=== PATIENT | male | born 1955 | race Caucasian/White ===

== ENCOUNTER 2016-08-27 15:37 | Emergency (ER) | payer BC ==
[2016-08-27] MEDS ORDERED: fentaNYL PF VIAL 100 MCG/2 ML VIAL IV PRN (16:00)
--- NOTE | 2016-08-27 16:03 | EKG ---
[facility] [address] [place] [address] Test Date: 2016-08-27 Test Time: 15:44:26 Pat Name: ANGEL GARCIA Department: Room: Gender: M New Grad Rn: : 1955 Requested By: WENDY GUTIERREZ Order Number: [id number] Reading MD: Measurements Intervals [place] Rate: 79 P: 31 [place]: 140 QRS: -19 QRSD: 88 T: 12 QT: 352 QTc: 405 Interpretive Statements SINUS RHYTHM LEFTWARD AXIS INCOMPLETE RIGHT BUNDLE BRANCH BLOCK QRS(T) CONTOUR ABNORMALITY CANNOT RULE OUT ANTEROSEPTAL MYOCARDIAL DAMAGE RI6.01 Unconfirmed report No previous ECG available for comparison
--- NOTE | 2016-08-27 16:36 | RAD ---
Portable chest, 08/27/2016: History: Chest pain The heart size and pulmonary vascularity are normal. No pulmonary infiltrates are seen. There is no evidence of pleural fluid. Mild spurring is present in the spine. IMPRESSION: No acute cardiopulmonary abnormality is detected.
[2016-08-27] MEDS ORDERED: LIDO:MAALOX:DONNATAL 1:1:1 15 ML SINGLE DOSE SWSW ONE (17:00)
[2016-08-27 17:02] LABS: BASO % 0 % (0-3); EOS % 1 % (0-3); HEMATOCRIT 41.7 % (39.0-53.0); HEMOGLOBIN 14.2 g/dL (13.0-17.5); LYMPH # 1.3 x10^3/uL (1.0-4.8); LYMPH % 16 % (24-48); MEAN CORPUSCULAR HEMOGLOBIN 30 pg (25-35); MEAN CORPUSCULAR HGB CONC 34 g/dL (31-37); MEAN CORPUSCULAR VOLUME 87 fL (79-100); MONO % 8 % (0-9); NEUT % 74 % (31-73); PLATELET COUNT 252 x10^3/uL (140-400); RED BLOOD COUNT 4.81 x10^6/uL (4.30-5.70); RED CELL DISTRIBUTION WIDTH 13.1 % (11.5-14.5); WHITE BLOOD COUNT 7.7 x10^3/uL (4.0-11.0)
[2016-08-27] MEDS: NITROGLYCERIN SUBLINGUAL 0.4 MG BOTTLE OF 25. SL PRN ×3 (17:04→17:22)
[2016-08-27 17:15] LABS: CREATININE 1.1 mg/dL (0.7-1.3); GFR 68.1; POTASSIUM 3.9 mmol/L (3.5-5.1)
[2016-08-27 17:29] LABS: DIRECT BILIRUBIN 0.1 mg/dL (0.0-0.2); TOTAL BILIRUBIN 0.3 mg/dL (0.2-1.0); TOTAL PROTEIN 8.2 g/dL (6.4-8.2)
[2016-08-27 17:34] LABS: BARBITURATES NEG (NEG); BENZODIAZEPINES NEG (NEG); CANNABINOIDS NEG (NEG); COCAINE NEG (NEG); METHADONE NEG (NEG); OPIATES NEG (NEG); PHENCYCLIDINE NEG (NEG)
[2016-08-27 18:27] VITALS: BP 156/92
--- NOTE | 2016-08-27 21:58 | ED.ADGEN ---
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 Patient states he's been 5 weeks of symptoms, which have been constant, described as a aching sensation located in the epigastric region of his abdomen. He denies any radiation, any shortness of breath, any nausea or vomiting, any focal weakness numbness or tingling, no radiation of the pain, any back pain, any arm pain, any similar symptoms previously. Patient states that seen by his primary care provider and evaluated with an ECG and laboratory studies, and then sent to Dr. Fransico HDZ for additional evaluation. He states that during the evaluation Dr. Bateman requested the patient proceed to the emergency department for additional evaluation to rule out any cardiac causes of the patient's pain before any further GI procedures or evaluations performed. Patient has been taking pantoprazole as prescribed his primary care provider for the past several weeks. No other medications, no recent travel or surgery, no injuries, no urinary or respiratory complaints. Review of Systems Review of Systems Constitutional: Denies fever or chills. [] Eyes: Denies change in visual acuity. [] HENT: Denies nasal congestion or sore throat. [] Respiratory: Denies cough or shortness of breath. [] Cardiovascular: Denies chest pain or edema. [] GI: Epigastric abdominal pain, no nausea, vomiting, bloody stools or diarrhea. : Denies dysuria. [] Musculoskeletal: Denies back pain or joint pain. [] Integument: Denies rash. [] Neurologic: Denies headache, focal weakness or sensory changes. [] Endocrine: Denies polyuria or polydipsia. [] Lymphatic: Denies swollen glands. [] Psychiatric: Denies depression or anxiety. [] Current Medications Current Medications Current Medications Medications (Trade) Dose Ordered Sig/Mohan Start Time Stop Time Status Last Admin Dose Admin Fentanyl Citrate (Fentanyl 2ml Vial) 25 mcg PRN Q15MIN PRN 08/27/16 16:00 08/27/16 18:39 DC Multi-Ingredient Mouthwash/Gargle (Gi Cocktail Single Dose) 15 ml 1X ONCE 08/27/16 17:00 08/27/16 17:01 DC 08/27/16 17:27 15 ML Nitroglycerin (Nitrostat) 0.4 mg PRN Q5MIN PRN 08/27/16 16:00 08/27/16 18:39 DC 08/27/16 17:22 0.4 MG Allergies Allergies Allergies Coded Allergies Type Severity Reaction Last Updated Verified No Known Drug Allergies 08/27/16 No Physical Exam Physical Exam Constitutional: Well developed, well nourished, no acute distress, non-toxic appearance. [] HENT: Normocephalic, atraumatic, bilateral external ears normal, oropharynx moist, no oral exudates, nose normal. [] Eyes: PERRLA, EOMI, conjunctiva normal, no discharge. [] Neck: Normal range of motion, no tenderness, supple, no stridor. [] Cardiovascular:Heart rate regular rhythm, no murmur, S1, S2, no rubs or gallops. [] Lungs & Thorax: Bilateral breath sounds clear to auscultation, no wheezing, rhonchi, rales. No chest or crepitus or tenderness. [] Abdomen: Bowel sounds normal, soft, mild tenderness palpation in the epigastric region, this is the location of the patient's discomfort, no other tenderness or abnormalities identified, no rebound, rigidity, no guarding, no masses, no pulsatile masses. [] Skin: Warm, dry, no erythema, no rash. [] Back: No tenderness, no CVA tenderness. [] Extremities: No tenderness, no cyanosis, no clubbing, ROM intact, no edema. Negative Homans sign. [] Neurologic: Alert and oriented X 3, normal motor function, normal sensory function, no focal deficits noted. [] Psychologic: Affect normal, judgement normal, mood normal. [] Current Patient Data Vital Signs Vital Signs Date Time Temp Pulse Resp B/P (MAP) Pulse Ox O2 Delivery O2 Flow Rate FiO2 08/27/16 18:27 75 19 156/92 (113) 98 Room Air 08/27/16 16:14 98.9 98.9 Lab Values Laboratory Tests Test 08/27/16 16:45 08/27/16 17:17 White Blood Count 7.7 x10^3/uL (4.0-11.0) Red Blood Count 4.81 x10^6/uL (4.30-5.70) Hemoglobin 14.2 g/dL (13.0-17.5) Hematocrit 41.7 % (39.0-53.0) Mean Corpuscular Volume 87 fL (79-100) Mean Corpuscular Hemoglobin 30 pg (25-35) Mean Corpuscular Hemoglobin Concent 34 g/dL (31-37) Red Cell Distribution Width 13.1 % (11.5-14.5) Platelet Count 252 x10^3/uL (140-400) Neutrophils (%) (Auto) 74 % (31-73) H Lymphocytes (%) (Auto) 16 % (24-48) L Monocytes (%) (Auto) 8 % (0-9) Eosinophils (%) (Auto) 1 % (0-3) Basophils (%) (Auto) 0 % (0-3) Neutrophils # (Auto) 5.7 x10^3uL (1.8-7.7) Lymphocytes # (Auto) 1.3 x10^3/uL (1.0-4.8) Monocytes # (Auto) 0.6 x10^3/uL (0.0-1.1) Eosinophils # (Auto) 0.1 x10^3/uL (0.0-0.7) Basophils # (Auto) 0.0 x10^3/uL (0.0-0.2) Sodium Level 144 mmol/L (136-145) Potassium Level 3.9 mmol/L (3.5-5.1) Chloride Level 104 mmol/L (98-107) Carbon Dioxide Level 32 mmol/L (21-32) Anion Gap 8 (6-14) Blood Urea Nitrogen 18 mg/dL (8-26) Creatinine 1.1 mg/dL (0.7-1.3) Estimated GFR (Cockcroft-Gault) 68.1 Glucose Level 107 mg/dL (70-99) H Calcium Level 9.0 mg/dL (8.5-10.1) Total Bilirubin 0.3 mg/dL (0.2-1.0) Direct Bilirubin 0.1 mg/dL (0.0-0.2) Aspartate Amino Transferase (AST) 17 U/L (15-37) Alanine Aminotransferase (ALT) 25 U/L (16-63) Alkaline Phosphatase 82 U/L (46-116) Troponin I Quantitative < 0.017 ng/mL (0.000-0.055) OR-Tgr-U-Type Natriuretic Peptide 54 pg/mL (0-124) Total Protein 8.2 g/dL (6.4-8.2) Albumin 4.0 g/dL (3.4-5.0) Lipase 141 U/L (73-393) Urine Opiates Screen Neg (NEG) Urine Methadone Screen Neg (NEG) Urine Barbiturates Neg (NEG) Urine Phencyclidine Screen Neg (NEG) Urine Amphetamine/Methamphetamine Neg (NEG) Urine Benzodiazepines Screen Neg (NEG) Urine Cocaine Screen Neg (NEG) Urine Cannabinoids Screen Neg (NEG) Urine Ethyl Alcohol Neg (NEG) Laboratory Tests 08/27/16 16:45 Laboratory Tests 08/27/16 16:45 EKG EKG EC: Sinus rhythm, heart rate 79 beats minute, QTC of 405, [place] 140, QRS of 88, left axis deviation with incomplete right bundle-branch block, contour normality is noted in lead 3, and V2, no ST elevations or depressions, abnormal ECG, does not meet STEMI criteria. As interpreted by me. Radiology/Procedures Radiology/Procedures [][facility] [address] [place] [address] IMAGING REPORT Signed PATIENT: ANGEL GARCIA ACCOUNT: [id number] : 1955 LOCATION: ER AGE: 60 SEX: M EXAM STATUS: REG ER ORD. PHYSICIAN: WENDY GUTIERREZ DO REASON: CP PROCEDURE: PORTABLE CHEST 1V Portable chest, 08/27/2016: History: Chest pain The heart size and pulmonary vascularity are normal. No pulmonary infiltrates are seen. There is no evidence of pleural fluid. Mild spurring is present in the spine. IMPRESSION: No acute cardiopulmonary abnormality is detected. DICTATED and SIGNED BY: CINDI REILLY MD DATE: 08/27/16 4091 CC: WENDY GUTIERREZ DO; NORAH,CLIF J DO ~ Course & Med Decision Making Course & Med Decision Making Pertinent Labs and Imaging studies reviewed. (See chart for details) Patient reports 5 weeks of continuous epigastric pain, without associated nausea , diaphoresis, radiation, chest pain, shortness of breath. Patient does have a family history of cardiac disease, his father received a CABG in his early 70s, and patient's brother received a CABG at age 62, 1-year-old woman the patient is currently. Patient states he had a stress test performed several years ago which was normal. He has not had any further cardiac workup. Patient's evaluation in the emergency department does not reveal any acutely concerning findings, ECG noted to be consistent with a left axis deviation and incomplete right bundle-branch block, there are no prior for comparison. Patient did receive nitroglycerin, and a GI cocktail in the emergency department without change in his discomfort. Troponin was negative, laboratory studies were not concerning. No indication of pulmonary or cardiac event as the cause of the patient's discomfort. I did discuss findings as above with Dr. Chavez of cardiology. As the patient has had symptoms for the past 5 weeks, and has no evidence of evolving concerns in the ED at this time, he recommends the patient to contact his office tomorrow to schedule outpatient stress test, the patient received cardiac clearance, so he can return to the GI physician to receive an EGD, as was discussed with Dr. Bateman per patient report. I discussed this with the patient, who is resting comfortably, and is agreeable with the plan, states the pain remains a 3 out of 10, unchanged from prior. We also discussed concerning symptoms that would prompt return to the emergency department for immediate evaluation. Patient discharged home in stable condition, to continue his pantoprazole, to follow-up with Dr. Chavez, and to follow-up with his primary care provider and GI physician as discussed. Dragon Disclaimer Dragon Disclaimer This electronic medical record was generated, in whole or in part, using a voice recognition dictation system. Departure Impression: Primary Impression: Epigastric abdominal pain Disposition: HOME, SELF-CARE Condition: STABLE SUMAN GUTIERREZIN Sofia PERALTA Aug 27, 2016 21:58
== END 2016-08-27 18:30 | disposition home or self-care (01) ==
LOC: ER 15:37
DX: R10.13 Epigastric pain (principal); K21.9 Gastro-esophageal reflux disease without esophagitis; K58.9 Irritable bowel syndrome, unspecified; Z82.49 Family history of ischemic heart disease and other diseases of the circulatory system; Z95.1 Presence of aortocoronary bypass graft
CPT/HCPCS: 36415; 71010; 80048; 80076; 80305; 80320; 83690; 83880; 84484; 85027; 93005; G0481; 99285-25